=== PATIENT | male | born 2000 | race American Indian/Alaskan Native ===

== ENCOUNTER 2020-08-17 22:51 | Emergency (ER) | payer SELFPAY ==
[2020-08-17] MEDS ORDERED: ASPIRIN 325 MG TAB PO ONE (23:40)
--- NOTE | 2020-08-17 23:47 | Emergency Department Report ---
ED Chest Pain HPI - General Stated Complaint: CHEST PAIN ON LEFT SIDE PUI?: No Source: patient Mode of arrival: Ambulatory Limitations: No Limitations - History of Present Illness Initial Comments: Patient is a 20-year-old -[place] male with a history of tobacco abuse, marijuana abuse and ADHD and not on any medication who presents to the ED with complaint of acute onset persistent constant left-sided chest pain for the last 8 hours. Patient states that the pain was initially mild and intermittent but it got worse especially with movement and palpation in the last 4 hours. Patient states that he try to go to sleep but could not sleep because of worsening left-sided chest pain. Patient states that he had just smoked marijuana when he started having the symptoms. Patient denies neck pain, shortness of breath, dizziness, syncope, palpitations, nausea and vomiting, traumatic injury or heavy lifting, fall, headache, abdominal pain, back pain, change in vision, numbness and tingling or weakness of upper and lower extremities bilaterally and cough or sore throat. MD Complaint: chest pain (Constant left-sided chest pain) -: Sudden, hour(s) (8) Onset: during rest, during exertion, awoke with symptoms Pain Location: left chest Pain Radiation: none Severity: severe Severity scale (0 -10): 7 Quality: aching, sharp Consistency: constant Improves With: nothing Worsens With: palpation, movement re: denies: nausea, vomting, diaphoresis, dyspnea, sense of impending doom, other Other Symptoms: denies: cough, fever, syncope, rash, acid taste in mouth, leg swelling, palpitations, burping Treatments Prior to Arrival: none - Related Data On Oral Contraceptives: No Previous Rx's Medication Instructions Recorded Last Taken Type Naproxen 500 mg PO Q12H PRN #24 tablet 08/18/20 Unknown Rx Allergies Allergy/AdvReac Type Severity Reaction Status Date / Time No Known Allergies Allergy Unverified 08/18/20 00:07 Heart Score - HEART Score History: Slightly suspicious EKG: Normal Age: < 45 Risk factors: 1-2 risk factors Troponin: < normal limit HEART Score: 1 - EKG Read Time Time EKG Completed: 23:53 EKG Read Time: 23:56 - Critical Actions Critical Actions: 0-3 pts:0.9-1.7%risk of adverse cardiac event.Candidate for discharge ED Review of Systems ROS: Stated complaint: CHEST PAIN ON LEFT SIDE Other details as noted in HPI Constitutional: denies: chills, fever Eyes: denies: eye pain, eye discharge, vision change ENT: denies: ear pain, throat pain Respiratory: denies: cough, shortness of breath, wheezing Cardiovascular: chest pain (Left-sided chest pain). denies: palpitations Endocrine: no symptoms reported Gastrointestinal: denies: abdominal pain, nausea, diarrhea Genitourinary: denies: urgency, dysuria Musculoskeletal: denies: back pain, joint swelling, arthralgia Skin: denies: rash, lesions Neurological: denies: headache, weakness, paresthesias Psychiatric: denies: anxiety, depression Hematological/Lymphatic: denies: easy bleeding, easy bruising ED Past Medical Hx - Past Medical History Previous Medical History?: Yes Hx Psychiatric Treatment: Yes (ADHD) - Medications Home Medications: Home Medications Medication Instructions Recorded Confirmed Last Taken Type Naproxen 500 mg PO Q12H PRN #24 tablet 08/18/20 Unknown Rx ED Physical Exam - General General appearance: alert, in no apparent distress - Head Head exam: Present: atraumatic, normocephalic, normal inspection - Eye Eye exam: Present: normal appearance, PERRL, EOMI Pupils: Present: normal accommodation - ENT ENT exam: Present: normal exam, normal orophraynx, mucous membranes moist, TM's normal bilaterally, normal external ear exam - Neck Neck exam: Present: normal inspection, full ROM - Respiratory Respiratory exam: Present: normal lung sounds bilaterally, chest wall tenderness (Palpable reproducible left-sided chest wall tenderness). Absent: respiratory distress, wheezes, rales, rhonchi, accessory muscle use, decreased breath sounds, prolonged expiratory - Cardiovascular Cardiovascular Exam: Present: regular rate, normal rhythm, normal heart sounds. Absent: systolic murmur, diastolic murmur, rubs, gallop - GI/Abdominal GI/Abdominal exam: Present: soft, normal bowel sounds. Absent: tenderness, guarding, hyperactive bowel sounds, hypoactive bowel sounds, organomegaly - Extremities Exam Extremities exam: Present: normal inspection, full ROM, normal capillary refill - Back Exam Back exam: Present: normal inspection, full ROM. Absent: tenderness, CVA tenderness (R), CVA tenderness (L), muscle spasm, paraspinal tenderness, vertebral tenderness - Neurological Exam Neurological exam: Present: alert, oriented X3, CN II-XII intact, normal gait, reflexes normal - Psychiatric Psychiatric exam: Present: normal affect, normal mood - Skin Skin exam: Present: warm, dry, intact, normal color. Absent: rash JERMAINE score - Jermaine Score Age > 65: (0) No Aspirin use within the Past 7 Days: (0) No 3 or more CAD Risk Factors: (0) No 2 or more Angina events in past 24 hrs: (0) No Known CAD with more than 50% Stenosis: (0) No Elevated Cardiac Markers: (0) No ST Deviation Greater than 0.5mm: (0) No JERMAINE Score: 0 ED Medical Decision Making - Lab Data Result diagrams: 08/17/20 23:47 08/17/20 23:47 - EKG Data EKG shows normal: sinus rhythm Rate: bradycardia - EKG Data Interpretation: normal EKG 08/18/20 02:32 EKG shows sinus bradycardia with a ventricular rate of [address] or T wave abnormalities. - Radiology Data Radiology results: report reviewed, image reviewed [address] [address] XRay Report Signed Patient: KELSEY OMALLEY MR#: [id number] : 2000 Acct:[id number] Age/Sex: 20 / M ADM Date: 08/17/20 Loc: ED Attending Dr: Ordering Physician: ATUL SÁNCHEZ Date of Service: 08/17/20 Procedure(s): XR chest 1V ap Accession Number(s): [id number] cc: ATUL SÁNCHEZ Fluoro Time In Minutes: CHEST 1 VIEW INDICATION: CHEST PAIN. COMPARISON: None. FINDINGS: Support devices: None. Heart: Normal. Lungs/Pleura: No acute pulmonary or pleural findings. IMPRESSION: 1. No acute findings. Signer Name: Angel Munroe MD Signed: 08/18/2020 12:07 AM Workstation Name: [id number] Transcribed By: LEONOR Dictated By: Angel Munroe MD Electronically Authenticated By: Angel Munroe MD Signed Date/Time: 08/18/206 DD/ TD/TT: - Medical Decision Making This is a 20-year-old -[place] male with a history of tobacco abuse, marijuana abuse and ADHD and not on any medication who presents to the ED with complaint of acute onset persistent constant left-sided chest pain for the last 8 hours. Patient states that the pain was initially mild and intermittent but it got worse especially with movement and palpation in the last 4 hours. Patient states that he try to go to sleep but could not sleep because of worsening left-sided chest pain. Patient states that he had just smoked marijuana when he started having the symptoms. In the ED, patient is alert and oriented x3 and is not in any distress. Chest x-ray shows no acute cardiopulmonary abnormalities pneumonitis. Lab test results were reviewed and are all nonactionable including troponin levels. EKG shows sinus bradycardia with a ventricular rate of [address] or T wave abnormalities. Patient's heart score is 1 and patient is PERC negative per Wells criteria. Based on the physical exam findings, patient pain is reproducible on palpation of the left chest wall consistent with acute costochondritis or muscle strain. Patient was therefore discharged home on pain medications specifically anti-inflammatory, and was advised to follow-up with his primary care physician in 3 to 5 days for reevaluation or return to the ED immediately if symptoms get worse. - Differential Diagnosis ACS; pneumonia; costochondritis; PE; muscle strain; GERD; dissection Critical care attestation.: If time is entered above; I have spent that time in minutes in the direct care of this critically ill patient, excluding procedure time. ED Disposition Clinical Impression: Left-sided chest wall pain, Acute costochondritis, Acute nonspecific chest pain with low risk of coronary artery disease Disposition: DC-01 TO HOME OR SELFCARE Is pt being admited?: No Does the pt Need Aspirin: No Condition: Stable Instructions: Costochondritis, [id number], Chest Wall Pain, [id number], Nonspecific Chest Pain, Adult, [id number], Chest Pain (ED) Additional Instructions: All lab test results were reviewed and are all nonactionable. Chest x-ray shows no acute cardiopulmonary abnormalities or pneumonitis. EKG shows sinus bradycardia with no ST or T wave abnormalities. Based on your history, lab test results, chest x-ray report and EKG report, your symptoms are likely due to acute costochondritis which is inflammation of your chest wall or muscle strain of your chest wall. Therefore take medications as needed for pain, drink plenty of fluids and follow-up with your primary care physician in 5 to 7 days for reevaluation. Return to the ED immediately if symptoms get worse. Prescriptions: Naproxen 500 mg PO Q12H PRN #24 tablet PRN Reason: Pain , Severe (7-10) Referrals: [facility] [Provider Group] - 3-5 Days Time of Disposition: 02:35 Print Language: TUNISIAN
--- NOTE | 2020-08-18 00:11 | XRay Report ---
CHEST 1 VIEW INDICATION: CHEST PAIN. COMPARISON: None. FINDINGS: Support devices: None. Heart: Normal. Lungs/Pleura: No acute pulmonary or pleural findings. IMPRESSION: 1. No acute findings. Signer Name: Angel Munroe MD Signed: 08/18/2020 12:07 AM Workstation Name: [email or web address]
[2020-08-18 00:12] LABS: Basophils # (Auto) 0.1 K/mm3 (0.0-0.1); Eosinophils # (Auto) 0.1 K/mm3 (0.0-0.4); Eosinophils % (Auto) 1.8 % (0.0-4.3); Hematocrit 43.3 % (35.5-45.6); Hemoglobin 15.2 gm/dl (11.8-15.2); Lymphocytes # (Auto) 3.6 K/mm3 (1.2-5.4); Lymphocytes % (Auto) 42.7 % (13.4-35.0); Mean Corpuscular HGB Conc 35 % (32-34); Mean Corpuscular Volume 91 fl (84-94); Monocytes # (Auto) 0.6 K/mm3 (0.0-0.8); Monocytes % (Auto) 7.2 % (0.0-7.3); Platelet Count 272 K/mm3 (140-440); Red Blood Count 4.76 M/mm3 (3.65-5.03); Red Cell Distribution Width 13.9 % (13.2-15.2)
[2020-08-18 01:23] LABS: Alanine Aminotransferase 53 units/L (7-56); Albumin 4.7 g/dL (3.9-5); BUN/Creatinine Ratio 10; Blood Urea Nitrogen 10 mg/dL (9-20); Calcium 8.9 mg/dL (8.4-10.2); Hemolysis Index 68
[2020-08-18 03:02] VITALS: BP 141/79
== END 2020-08-18 03:02 | disposition home or self-care (01) ==
LOC: ED 22:51
DX: M94.0 Chondrocostal junction syndrome [Tietze] (principal); R07.89 Other chest pain; F90.9 Attention-deficit hyperactivity disorder, unspecified type; F12.90 Cannabis use, unspecified, uncomplicated; Z79.899 Other long term (current) drug therapy
CPT/HCPCS: 36415; 71045; 80053; 84484; 85025; 93005